=== PATIENT | female | born 1965 | race American Indian/Alaskan Native ===

== ENCOUNTER 2017-02-01 18:38 | Inpatient (IN) | payer MEDICAID ==
--- NOTE | 2017-02-01 19:03 | EDPD ---
HPI Stroke - General Time Seen by Provider: 02/01/17 18:59 Chief Complaint: Weakness/Neurological Deficit Historian: Patient - History of Present Illness Narrative History of Present Illness (Free Text): 02/01/17 18:55 51 year old female who denies past medical history presents to the emergency department with sharp headache followed by left sided numbness 30 minutes prior to arrival. Patient states she first had a headache before feeling numbness on the left side of the face, left arm, and left lower extremity. Currently patient states the headache has resolved but still reports left sided numbness. Patient reports her blood pressure is usually high but states she is not on medication. PMD: None Date:: 02/01/17 Time: 18:54 Onset:: Just prior to presenting rTPA Inclusion/Exclusion - Refusal of Treatment Patient Refused Treatment: No - Inclusion Criteria for Altepase Patient is 18 years or Older: Yes The Clinical Diagnosis of Ischemic Stroke That is Causing a Potentially Disabling Neurological Deficit: Yes Time of Onset is Well Established to be Less Than 270 Minute Before Treatment Would Begin: Yes Risk/Benefit Discussed With Patient/Family Member Present: No - Warning to TPA With Conditions Condition: Stroke Serevity Too Mild Past Medical History - Provider Review Nursing Documentation Reviewed: Yes - Infectious Disease Hx of Infectious Diseases: None - Reproductive Menopause: Yes - Cardiac Hx Hypertension: Yes - Integumentary Hx Dermatological Disorder: No - Psychiatric Hx Substance Use: No - Anesthesia Hx Anesthesia: No Family/Social History - Family/Social History Family History: Non-Contributory - Review Nursing documentation reviewed.: Yes Allergies/Home Meds Allergies/Adverse Reactions: Allergies latex Allergy (Verified 02/02/17 07:25) ITCHING shellfish derived Allergy (Verified 02/02/17 07:25) SHORTNESS OF BREATH Home Medications: Home Meds Medication Instructions Recorded Confirmed No Known Home Med 02/01/17 02/01/17 Review of Systems - Physician Review All systems were reviewed & negative as marked: Yes - Review of Systems Respiratory: absent: SOB Cardiovascular: absent: Chest Pain Neurological: Headache (resolved), Other (left sided numbness) ED Stroke Physical Exam Vital Signs Reviewed: Yes Vital Signs Temp Pulse Resp BP Pulse Ox 02/01/17 18:54 98 F 78 18 203/103 H 98 Temperature: Afebrile Blood Pressure: Hypertensive Pulse: Regular Respiratory Rate: Normal Appearance: Positive for: Well-Appearing, Non-Toxic, Comfortable Pain Distress: None Mental Status: Positive for: Alert and Oriented X 3 - Systems Exam Head: Present: Atraumatic, Normocephalic Pupils: Present: PERRL Extroacular Muscles: Present: EOMI Conjunctiva: Present: Normal Mouth: Present: Moist Mucous Membranes Neck: Present: Normal Range of Motion Respiratory/Chest: Present: Clear to Auscultation, Good Air Exchange. No: Respiratory Distress, Accessory Muscle Use Cardiovascular: Present: Regular Rate and Rhythm, Normal S1, S2. No: Murmurs Abdomen: Present: Normal Bowel Sounds. No: Tenderness, Distention, Peritoneal Signs Genitourinary/Pelvic Exam: Present: NI. No: C, E Back: Present: GCS, CN, SP Upper Extremity: Present: Normal Inspection. No: Cyanosis, Edema Lower Extremity: Present: Normal Inspection. No: Edema Neurologic: Present: GCS=15, CN II-XII Intact, Speech Normal, Motor Func Grossly Intact, Normal Cerebellar Funct, Norm Deep Tendon Reflexes, Memory Normal, Normal 2Pt Descrimination, Other (Subjective left sided decreased sensation). No: Pronator Drift, Facial Droop, Dysmetric Finger to Nose, Dysmetric Heel to Chin Skin: Present: Warm, Dry, Normal Color. No: Rashes Lymphatic: Present: OX3, NI, NC Psychiatric: Present: Alert, Oriented x 3, Normal Insight, Normal Concentration Medical Decision Making ED Course and Treatment: 02/01/17 18:[address] García who states no TPA EKG shows NSR at 89 BPM with LVH, nonspecific t wave abnormality EXAM: CT Head Without Intravenous Contrast IMPRESSION: No acute findings. Dictated and Authenticated by: Harvey Adrian MD Disc w Dr Suri who will admit - EKG Interpretation Interpreted by ED Physician: Yes Type: 12 lead EKG - Scribe Statement The provider has reviewed the documentation as recorded by the Swetha Silva Provider Scribe Attestation: All medical record entries made by the Scribe were at my direction and personally dictated by me. I have reviewed the chart and agree that the record accurately reflects my personal performance of the history, physical exam, medical decision making, and the department course for this patient. I have also personally directed, reviewed, and agree with the discharge instructions and disposition. NIHSS Scale ([place]) Time Performed: 18:55 - How Severe is the Stoke Baseline Level of Consciousness: 0=Alert LOC to Questions: 0=Both comments correct LOC to commands: 0=Obeys both correctly Best Gaze: 0=Normal Visual: 0=No visual loss Facial: 0=Normal Motor Arm - Left: 0=No drift Motor Arm - Right: 0=No drift Motor Leg - Left: 0=No drift Motor Leg - Right: 0=No drift Limb Ataxia: 0=Absent Sensory: 1=Mild to moderate loss Best Language: 0=No aphasia Dysarthia: 0=Normal articulation Extinction & Inattention (Neglect): 0=Normal, no object Score: 1 Risk Level: Minor Stroke Risk Disposition/Present on Arrival - Present on Arrival Any Indicators Present on Arrival: No History of DVT/PE: No History of Uncontrolled Diabetes: No Urinary Catheter: No History of Decub. Ulcer: No History Surgical Site Infection Following: None - Disposition Have Diagnosis and Disposition been Completed?: Yes Diagnosis: Left sided numbness Disposition: HOSPITALIZED Disposition Time: 20:09 Patient Problems: Current Active Problems Problem Status Diagnosed Left sided numbness Acute Condition: STABLE
[2017-02-01 19:08] LABS: ADD MANUAL DIFF? NO
[2017-02-01 19:13] LABS: BASO # 0.03 K/mm3 (0.0-2.0); BASO % 0.3 % (0.0-3.0); EOS # 0.1 (0.0-0.7); EOS % 1.3 % (1.5-5.0); GRAN # 4.05 (1.4-6.5); HEMATOCRIT 41.2 % (36.0-48.0); LYMPH # 3.9 (1.2-3.4); LYMPH % 44.8 % (22.0-35.0); MEAN CELL VOLUME 89.2 fL (80.0-105.0); MEAN CORPUSCULAR HEMOGLOBIN 30.3 pg (25.0-35.0); MEAN PLATELET VOLUME 10.2 fl (7.0-11.0); MONO # 0.6 (0.1-0.6); MONO % 6.6 % (1.0-6.0); PLATELET COUNT 313 10^3/uL (120.0-450.0); RED CELL DISTRIBUTION WIDTH 13.1 % (11.5-14.5); WHITE BLOOD COUNT 8.6 10^3/ul (4.5-11.0)
[2017-02-01 19:20] LABS: ALB/GLOB RATIO 1.1 (1.1-1.8); ALKALINE PHOSPHATASE 126 U/L (38-133); ALT/SGPT 130 U/L (7-56); AST/SGOT 147 U/L (15-39); BILIRUBIN,TOTAL 0.5 mg/dL (0.2-1.3); BLOOD UREA NITROGEN 7 mg/dL (7-21); CALCIUM 9.1 mg/dL (8.4-10.5); CARBON DIOXIDE 29 mmol/L (21-33); CHLORIDE 103 mmol/L (98-107); CHOLESTEROL 222 mg/dL (130-200); GFR AFRICAN-AMERICAN > 60; GLUCOSE,RANDOM 110 mg/dL (70-110); POTASSIUM 3.7 mmol/L (3.6-5.0); SODIUM 141 mmol/L (132-148); TOTAL PROTEIN 8.4 g/dL (5.8-8.3)
[2017-02-01 19:22] LABS: INR 0.99 (0.93-1.08); PARTIAL THROMBOPLASTIN TIME 25.4 Seconds (23.7-30.8)
[2017-02-01 19:31] LABS: TROPONIN I < 0.01 ng/mL
--- NOTE | 2017-02-01 21:28 | CP.PCM.HP ---
<Michael Vaughn - Last Filed: 02/01/17 21:33> History of Present Illness - History of Present Illness History of Present Illness: 51 F with PMHx of uncontrolled HTN non compliant with meds and herniated disc presents to [facility] by EMS with complaints of left sided numbness and weakness. 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 This discomfort lasted for approx 5 minutes, as the patient took a tylenol when arriving at home and relieved her of the symptom. Pt went to use the restroom and afterwards upon standing felt left sided weakness leading her to hit the left side of her body against the wall at which time she described feeling left sided numbness. The patient called out for her daughter as she ambulated towards a chair. The daughter, available at bedside, confirmed hearing her mom slur her words and a brief moment of confusion, however no facial droop. The daughter called EMS and was brought to [facility] ED and a code stroke was called. Neurology was made aware of the case and did not recommend tpa. Pt admitted to seeing floaters. Pt was seen and examined at bedside with family present. Pt denied fever, chills, chest pains, sob, palpitations, abdominal pains, n/v/d/c or urinary symptoms. PMHx: HTN, Herniated disc PSHx: 3 c-sections SHx: Denied tobacco abuse, admitted to drinking 40oz beer daily, denied illicit drug use Fam Hx: Mom: HTN, CAD Meds: Denied Allergies: Shellfish and latex Present on Admission - Present on Admission Any Indicators Present on Admission: No History of DVT/PE: No History of Uncontrolled Diabetes: No Urinary Catheter: No Decubitus Ulcer Present: No Review of Systems - Review of Systems Review of Systems: As per HPI otherwise negative Past Patient History - Infectious Disease Hx of Infectious Diseases: None - Past Social History Smoking Status: Unknown If Ever Smoked - CARDIAC Hx Hypertension: Yes - INTEGUMENTARY Hx Dermatological Problems: No - PSYCHIATRIC Hx Substance Use: No - ANESTHESIA Hx Anesthesia: No Meds Allergies/Adverse Reactions: Allergies Allergy/AdvReac Type Severity Reaction Status Date / Time No Known Allergies Allergy Verified 02/01/17 18:59 Physical Exam - Constitutional Appears: Well, No Acute Distress - Head Exam Head Exam: ATRAUMATIC, NORMAL INSPECTION, NORMOCEPHALIC - Eye Exam Eye Exam: EOMI, Normal appearance, PERRL Pupil Exam: NORMAL ACCOMODATION, PERRL - ENT Exam ENT Exam: Mucous Membranes Moist, Normal Exam - Neck Exam Neck exam: Positive for: Normal Inspection - Respiratory Exam Respiratory Exam: Clear to Auscultation Bilateral, NORMAL BREATHING PATTERN - Cardiovascular Exam Cardiovascular Exam: REGULAR RHYTHM, +S1, +S2. absent: JVD - GI/Abdominal Exam GI & Abdominal Exam: Normal Bowel Sounds, Soft. absent: Tenderness - Extremities Exam Extremities exam: Positive for: normal inspection, pedal edema (trace). Negative for: calf tenderness, tenderness - Back Exam Back exam: NORMAL INSPECTION - Neurological Exam Neurological exam: Alert, CN II-XII Intact, Normal Gait, Oriented x3, Reflexes Normal - Psychiatric Exam Psychiatric exam: Normal Affect, Normal Mood - Skin Skin Exam: Dry, Intact, Normal Color, Warm Results - Vital Signs Recent Vital Signs: Last Vital Signs Temp 98 F 02/01/17 18:54 Pulse 78 02/01/17 18:54 Resp 18 02/01/17 18:54 BP 203/103 H 02/01/17 18:54 Pulse Ox 98 02/01/17 18:54 - Labs Result Diagrams: 02/01/17 19:00 02/01/17 19:00 Labs: Laboratory Results - last 24 hr 02/01/17 19:00 WBC 8.6 RBC 4.62 Hgb 14.0 Hct 41.2 MCV 89.2 MCH 30.3 MCHC 34.0 RDW 13.1 Plt Count 313 MPV 10.2 Gran % 47.0 L Lymph % (Auto) 44.8 H [place] % (Auto) 6.6 H Eos % (Auto) 1.3 L Baso % (Auto) 0.3 Gran # 4.05 Lymph # 3.9 H [place] # 0.6 Eos # 0.1 Baso # 0.03 PT 10.7 INR 0.99 APTT 25.4 Sodium 141 Potassium 3.7 Chloride 103 Carbon Dioxide 29 Anion Gap 13 BUN 7 Creatinine 0.6 Est GFR ( Amer) > 60 Est GFR (Non-Af Amer) > 60 Random Glucose 110 Calcium 9.1 Total Bilirubin 0.5 AST 147 H ALT 130 H Alkaline Phosphatase 126 Troponin I < 0.01 Total Protein 8.4 H Albumin 4.4 Globulin 4.0 Albumin/Globulin Ratio 1.1 Triglycerides 144 Cholesterol 222 H LDL Cholesterol Direct 132 H HDL Cholesterol 57 Assessment & Plan - Assessment and Plan (Free Text) Assessment: 51 F with PMHx of uncontrolled HTN non compliant with meds and herniated disc presents to [facility] by EMS with complaints of left sided numbness and weakness. Currently without symptoms. Admitted to tele obs. 1. Left sided Numbness and Weakness - possible TIA, currently resolved - CTH negative - Neurology, Dr. García Consulted, no indications for tPA at this time. - Asa - HOB >30 - Fall precautions - Neurochecks q4 2. Uncontrolled HTN - 203/103 - Norvasc 10 daily ,HCTZ 25 daily, Hydralazine 10mg IV - Reassess after hydralazine 3. Etoh abuse - counselled and educated pt on the harms of daily drinking - pt agreed and conferred understanding 4. GI DVT ppx seen reviewed and discussed with attending <Daisha SEGURA,Brent - Last Filed: 02/02/17 05:46> Results - Vital Signs Recent Vital Signs: Last Vital Signs Temp 98.1 F 02/02/17 00:01 Pulse 80 02/02/17 01:58 Resp 20 02/02/17 00:01 BP 164/78 H 02/02/17 01:58 Pulse Ox 96 02/02/17 00:01 - Labs Result Diagrams: 02/01/17 19:00 02/01/17 19:00 Labs: Laboratory Results - last 24 hr 02/01/17 22:20 Urine Color Yellow Urine Appearance Clear Urine pH 7.5 Ur Specific [place] 1.015 Urine Protein 30 H Urine Glucose (UA) Negative Urine Ketones Negative Urine Blood Negative Urine Nitrate Negative Urine Bilirubin Negative Urine Urobilinogen 0.2 Ur Leukocyte Esterase Negative Urine RBC 0 - 2 Urine WBC 0 - 2 Urine Opiates Screen Negative Urine Methadone Screen Negative Ur Barbiturates Screen Negative Ur Phencyclidine Scrn Negative Ur Amphetamines Screen Negative U Benzodiazepines Scrn Negative U Oth Cocaine Metabols Negative U Cannabinoids Screen Negative Attending/Attestation - Attestation I have personally seen and examined this patient.: Yes I have fully participated in the care of the patient.: Yes I have reviewed all pertinent clinical information: Yes Notes (Text): 02/02/17 05:40 -I agree with the above H&P completed by the resident physician with the following additions and/or changes: -The patient is a 51 year old AAF with a history of HTN and chronic alcohol abuse who is being admitted for TIA due to hypertensive emergency. She admits to medication non-compliance. A code stroke was initially called and Dr. Brendan Garcaí (neurology) determined the patient NOT to be a candidate for t-PA. CT- head was negative for acute disease. She will be admitted to tele and started on HCTZ 25mg daily and Norvasc 10mg daily. Additionally, we will use Clonidine PRN as needed to control her pressures. Also, she will be started in daily ASA and her neuro exam will be monitored Q4hrs. As apart of the stroke work-up, the following labs and studies have been ordered: HgA1c, Lipids, TSH, drug toxicology, 2D-echo and bilateral carotid ultrasound. Also, a formal neurology consult has been placed.
[2017-02-01 22:33] LABS: PH,URINE 7.5 (4.7-8.0); URINE BILIRUBIN NEGATIVE (NEGATIVE); URINE BLOOD NEGATIVE (NEGATIVE); URINE GLUCOSE (UA) NEGATIVE (NEGATIVE); URINE KETONE NEGATIVE (NEGATIVE); URINE LEUKOCYTE ESTERASE NEGATIVE Leu/uL (NEGATIVE); URINE PROTEIN 30 mg/dL (<30 mg/dL); URINE UROBILINOGEN 0.2 E.U./dL (<1 E.U./dL)
[2017-02-01 22:46] LABS: URINE APPEARANCE CLEAR (CLEAR); URINE COLOR YELLOW (YELLOW)
[2017-02-01 22:53] LABS: URINE RBC 0 - 2 /hpf (0-2); URINE WBC 0 - 2 /hpf (0-6)
[2017-02-01] MEDS ORDERED: Labetalol 5 mg/ml Inj 20ML IV STA ×2 (23:06→23:35)
[2017-02-02 00:32] VITALS: RESP 20
[2017-02-02 05:52] VITALS: TEMP 97.8; O2SAT 97
[2017-02-02 07:20] LABS: CHOLESTEROL 205 mg/dL (130-200)
[2017-02-02] MEDS ORDERED: Pantoprazole 40 mg EC Tab PO SCH (07:30)
--- NOTE | 2017-02-02 09:38 | CON ---
DATE: 02/02/2017 AGE: A 51-year-old woman. CHIEF COMPLAINT: Transient left side numbness. HISTORY OF PRESENT ILLNESS: This is a 51-year-old woman with a history of uncontrol led hypertension -- noncompliant with medications, and a history of herniated disk, low back pain, an d has not seen a primary care doctor in about 5 years. 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 When she went to use the restroom, getting up from a sitting to a standing position, she felt her left side weak and hit herse lf against the wall. At that time she started feeling the left side numbness. She came [facility]. She had elevated systolic and diastolic blood pressures, 203/103, which eventually was being controlled to now where it is stable of 144/68. She was not on aspirin currentl y. Currently, no paresthesias, no weakness in the extremities. Her neuro exam is currently nonfocal . She walked around without any difficulty. No change in sense of vision, taste, or smell. No slur ring of speech. No headaches at this time. REVIEW OF SYSTEMS: A 14-point review of systems is negative except for the HPI. PAST MEDICAL HISTORY: History of hypertension, chronic back pain, history of herniated disk. PAST SURGICAL HISTORY: Three C-sections. SOCIAL HISTORY: Denies tobacco use, but admits to drinking 40 ounce beers daily. Denies any illicit drug use. FAMILY HISTORY: Mom has hypertension and coronary artery disease. CURRENT MEDICATIONS: Reviewed and nurse's reconciliation sheet. ALLERGIES: ALLERGIC TO SHELLFISH AND LATEX. PHYSICAL EXAMINATION: VITAL SIGNS: Temperature 97.8, pulse rate 80, blood pressure 144/68, respiratory rate of 20, oxygen saturation 97%. FAMILY HISTORY: Noncontributory. GENERAL EXAMINATION: The patient is sitting up in bed in no acute distress. HENT: Atraumatic, normocephalic. PERRLA, extraocular muscles intact. NECK: Supple, no JVD, no adenopathy noted. LUNGS: Clear to auscultation. No adventitious sounds. HEART: S1and S2, normal rate and rhythm. No murmurs, rubs, or gallops. ABDOMEN: Soft, nontender, nondistended. Bowel sounds are present. EXTREMITIES: No clubbing, no cyanosis. Peripheral pulses 2+ felt bilaterally. NEUROLOGIC EXAMINATION: The patient is alert, oriented to person, place, month, and year. Speech is fluent without any errors. Cranial nerves II-XII are intact. MOTOR EXAMINATION: Strength is 5/5 in both upper and lower extremities, no pronator drift seen. SENSORY EXAMINATION: Light touch, pinprick, proprioception, vibration intact. DTRs are 2+ throughou t. COORDINATION: [id number] intact. There is no tremors elicited. GAIT: Normal. Romberg negative. Sodium 141, potassium 3.7, chloride of 103, carbon dioxide 29, BUN of 7, creatinine 0.6, random gluco se of 110. A1c 6.4, triglycerides 204, cholesterol is 205. LDL is 123, HDL is 47. ASSESSMENT AND PLAN: This is a 51-year-old woman with a history of uncontrolled hyp ertension -- noncompliant with medications, history of low back pain with herniated disks, who presen juanjose with transient left side numbness and right facial pressure which is currently resolved. She was found to have elevated systolic and diastolic blood pressure of more than 200, and diastolic more th an 100. Currently, it is under control. Her transient symptoms are likely secondary to her transien t ischemic events secondary to hypertensive urgency. At this time, recommend: 1. Aspirin 81 mg plus Lipitor 40 mg p.o. daily for stroke prevention. 2. Lipitor 40 mg p.o. daily for dyslipidemia. 3. Advise low-fat, low-cholesterol diet. 4. Alcohol cessation so it can prevent her from pressures going up. 5. Establish a primary care doctor in the community. 6. Exercise, and a heart-healthy diet. She is clinically stable. From my standpoint she can be discharged home and follow up with her prima care doctor. Thank you for this consult. Pierre García MD cc: [id number] TT: 02/02/2017 09:38:06 Confirmation # [id number] Dictation # [id number]
[2017-02-02 10:24] VITALS: BP 151/91; PULSE 91
--- NOTE | 2017-02-02 10:27 | RAD ---
HISTORY: code cva COMPARISON: No prior. FINDINGS: LUNGS: No active pulmonary disease. PLEURA: No significant pleural effusion identified, no pneumothorax apparent. CARDIOVASCULAR: Heart appears mildly enlarged. OSSEOUS STRUCTURES: No significant abnormalities. VISUALIZED UPPER ABDOMEN: Normal. OTHER FINDINGS: None. IMPRESSION: No acute cardiopulmonary disease. Mild cardiomegaly.
--- NOTE | 2017-02-02 11:28 | CARD ---
APPROVED REPORT EKG Measurement Heart [id number] <Conclusion> Normal sinus rhythm Possible Left atrial enlargement Left ventricular hypertrophy Leftward axis STTW changes c/w ischemia
--- NOTE | 2017-02-02 12:47 | US ---
PROCEDURE: Bilateral carotid artery duplex ultrasound HISTORY: Carotid stenosis TIA PHYSICIAN(S): Zaire Burns MD. TECHNIQUE: Duplex sonography and color-flow Doppler were used to evaluate the carotid bifurcations and limited segments of the vertebral arteries bilaterally. FINDINGS: The exam is somewhat limited by body habitus and tortuous vessels, greater on the left than the right There is mild smooth hypoechoic plaque noted at the carotid bifurcations bilaterally. The peak systolic velocity in the proximal right internal carotid artery is 61 cm/sec. This corresponds to a 20 to 39% proximal right ICA stenosis. Normal systolic velocities are noted in the proximal right external carotid artery. There is antegrade flow in the right vertebral artery. The peak systolic velocity in the proximal left internal carotid artery is 58 cm/sec. This corresponds to a 20 to 39% proximal left ICA stenosis. Normal systolic velocities are noted in the proximal left external carotid artery. There is antegrade flow in the left vertebral artery. IMPRESSION: 1. Bilateral 20-39% proximal ICA stenoses. 2. Antegrade flow in both vertebral arteries.
--- NOTE | 2017-02-02 12:59 | CT ---
PROCEDURE: CT scan brain dated 02/01/2017 HISTORY: left side numbness COMPARISON: No prior study available comparison TECHNIQUE: Axial computed tomography images were obtained through the head/brain without intravenous contrast. Radiation dose: Total exam DLP = 940.91 mGy-cm. This CT exam was performed using one or more of the following dose reduction techniques: Automated exposure control, adjustment of the mA and/or kV according to patient size, and/or use of iterative reconstruction technique. FINDINGS: HEMORRHAGE: No acute parenchymal, subarachnoid or extra-axial hemorrhage. BRAIN: Minor chronic periventricular white matter ischemic changes of with a few scattered chronic appearing bilateral basal nuclei lacunar type infarcts. Note the possibility of an underlying acute infarct cannot be completely excluded. There is any concern, recommend followup on MRI of the brain the urgency of which is should be based on clinical correlation and whether the patient is currently eligible for tPA therapy VENTRICLES: Mild age-appropriate volume loss with prominent ventricles and sulci. No obstructive hydrocephalus. CALVARIUM: No acute calvarial fractures. PARANASAL SINUSES: Minimal mucosal thickening noted within the right maxillary antrum. MASTOID AIR CELLS: Unremarkable as visualized. No inflammatory changes. OTHER FINDINGS: None. IMPRESSION: No acute intracranial hemorrhage. Mild chronic white matter ischemic changes with a few scattered chronic bilateral basal nuclei lacunar type infarcts. Note that the possibility of an acute infarct cannot be excluded. Followup MRI with diffusion imaging recommended as detailed above.
--- NOTE | 2017-02-02 13:48 | CP.PCM.DIS ---
<Martínez Freeman - Last Filed: 02/02/17 16:48> Provider - Provider Date of Admission: 02/01/17 20:09 Attending physician: Puma Kruger MD Primary care physician: NO PRIMARY CARE PROVIDER Consults: Dr. Pierre García Time Spent in preparation of Discharge (in minutes): 35 Hospital Course - Lab Results Lab Results: Most Recent Lab Values WBC 8.6 10^3/ul (4.5-11.0) 02/01/17 19:00 RBC 4.62 10^6/uL (3.5-6.1) 02/01/17 19:00 Hgb 14.0 gm/dL (12.0-16.0) 02/01/17 19:00 Hct 41.2 % (36.0-48.0) 02/01/17 19:00 MCV 89.2 fL (80.0-105.0) 02/01/17 19:00 MCH 30.3 pg (25.0-35.0) 02/01/17 19:00 MCHC 34.0 g/dl (31.0-37.0) 02/01/17 19:00 RDW 13.1 % (11.5-14.5) 02/01/17 19:00 Plt Count 313 10^3/uL (120.0-450.0) 02/01/17 19:00 MPV 10.2 fl (7.0-11.0) 02/01/17 19:00 Gran % 47.0 % (50.0-68.0) L 02/01/17 19:00 Lymph % (Auto) 44.8 % (22.0-35.0) H 02/01/17 19:00 Foster % (Auto) 6.6 % (1.0-6.0) H 02/01/17 19:00 Eos % (Auto) 1.3 % (1.5-5.0) L 02/01/17 19:00 Baso % (Auto) 0.3 % (0.0-3.0) 02/01/17 19:00 Gran # 4.05 (1.4-6.5) 02/01/17 19:00 Lymph # 3.9 (1.2-3.4) H 02/01/17 19:00 Foster # 0.6 (0.1-0.6) 02/01/17 19:00 Eos # 0.1 (0.0-0.7) 02/01/17 19:00 Baso # 0.03 K/mm3 (0.0-2.0) 02/01/17 19:00 PT 10.7 Seconds (9.9-11.8) 02/01/17 19:00 INR 0.99 (0.93-1.08) 02/01/17 19:00 APTT 25.4 Seconds (23.7-30.8) 02/01/17 19:00 Sodium 141 mmol/L (132-148) 02/01/17 19:00 Potassium 3.7 mmol/L (3.6-5.0) 02/01/17 19:00 Chloride 103 mmol/L (98-107) 02/01/17 19:00 Carbon Dioxide 29 mmol/L (21-33) 02/01/17 19:00 Anion Gap 13 (10-20) 02/01/17 19:00 BUN 7 mg/dL (7-21) 02/01/17 19:00 Creatinine 0.6 mg/dL (0.5-1.4) 02/01/17 19:00 Est GFR ( Amer) > 60 02/01/17 19:00 Est GFR (Non-Af Amer) > 60 02/01/17 19:00 POC Glucose (mg/dL) 113 mg/dL (65-110) H 02/02/17 07:17 Random Glucose 110 mg/dL (70-110) 02/01/17 19:00 Hemoglobin A1c 6.4 % (4.2-6.5) 02/01/17 19:00 Calcium 9.1 mg/dL (8.4-10.5) 02/01/17 19:00 Total Bilirubin 0.5 mg/dL (0.2-1.3) 02/01/17 19:00 AST 147 U/L (15-39) H 02/01/17 19:00 ALT 130 U/L (7-56) H 02/01/17 19:00 Alkaline Phosphatase 126 U/L (38-133) 02/01/17 19:00 Troponin I < 0.01 ng/mL 02/01/17 19:00 Total Protein 8.4 g/dL (5.8-8.3) H 02/01/17 19:00 Albumin 4.4 g/dL (3.0-4.8) 02/01/17 19:00 Globulin 4.0 gm/dL 02/01/17 19:00 Albumin/Globulin Ratio 1.1 (1.1-1.8) 02/01/17 19:00 Triglycerides 204 mg/dL (35-160) H 02/02/17 06:30 Cholesterol 205 mg/dL (130-200) H 02/02/17 06:30 LDL Cholesterol Direct 123 mg/dL (0-129) 02/02/17 06:30 HDL Cholesterol 47 mg/dL (29-60) 02/02/17 06:30 TSH 3rd Generation 4.56 mIU/mL (0.46-4.68) 02/01/17 19:00 Urine Color Yellow (YELLOW) 02/01/17 22:20 Urine Appearance Clear (CLEAR) 02/01/17 22:20 Urine pH 7.5 (4.7-8.0) 02/01/17 22:20 Ur Specific [place] 1.015 (1.005-1.035) 02/01/17 22:20 Urine Protein 30 mg/dL (<30 mg/dL) H 02/01/17 22:20 Urine Glucose (UA) Negative mg/dL (NEGATIVE) 02/01/17 22:20 Urine Ketones Negative mg/dL (NEGATIVE) 02/01/17 22:20 Urine Blood Negative (NEGATIVE) 02/01/17 22:20 Urine Nitrate Negative (NEGATIVE) 02/01/17 22:20 Urine Bilirubin Negative (NEGATIVE) 02/01/17 22:20 Urine Urobilinogen 0.2 E.U./dL (<1 E.U./dL) 02/01/17 22:20 Ur Leukocyte Esterase Negative Dipesh/uL (NEGATIVE) 02/01/17 22:20 Urine RBC 0 - 2 /hpf (0-2) 02/01/17 22:20 Urine WBC 0 - 2 /hpf (0-6) 02/01/17 22:20 Urine Opiates Screen Negative (NEGATIVE) 02/01/17 22:20 Urine Methadone Screen Negative (NEGATIVE) 02/01/17 22:20 Ur Barbiturates Screen Negative (NEGATIVE) 02/01/17 22:20 Ur Phencyclidine Scrn Negative (NEGATIVE) 02/01/17 22:20 Ur Amphetamines Screen Negative (NEGATIVE) 02/01/17 22:20 U Benzodiazepines Scrn Negative (NEGATIVE) 02/01/17 22:20 U Oth Cocaine Metabols Negative (NEGATIVE) 02/01/17 22:20 U Cannabinoids Screen Negative (NEGATIVE) 02/01/17 22:20 Blood Type B POSITIVE 02/01/17 17:00 Blood Type Confirm B POSITIVE 02/01/17 17:30 Antibody Screen Negative 02/01/17 17:00 BBK History Checked No verified bt 02/01/17 17:00 - Hospital Course Hospital Course: HPI: 51 F with PMHx of uncontrolled HTN non compliant with meds and herniated disc presents to [facility] by EMS with complaints of left sided numbness and weakness. 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 This discomfort lasted for approx 5 minutes, as the patient took a tylenol when arriving at home and relieved her of the symptom. Pt went to use the restroom and afterwards upon standing felt left sided weakness leading her to hit the left side of her body against the wall at which time she described feeling left sided numbness. The patient called out for her daughter as she ambulated towards a chair. The daughter, available at bedside, confirmed hearing her mom slur her words and a brief moment of confusion, however no facial droop. The daughter called EMS and was brought to [facility] ED and a code stroke was called. Neurology was made aware of the case and did not recommend tpa. Pt admitted to seeing floaters. Pt was seen and examined at bedside with family present. Pt denied fever, chills, chest pains, sob, palpitations, abdominal pains, n/v/d/c or urinary symptoms. Patient is a 51 y/o F who presented with complaint of left sided numbness and weakness. Head CT performed showed no acute intracranial hemorrhage, with mild chronic white matter ischemic changes and few scattered chronic bilateral basal nuclei lacunar infarcts. A chest x-ray was performed showing mild cardiomegally. An EKG was performed normal sinus rhythm, left atrial enlargement , LVH and left axis deviation. Neurology was consulted and she was determined not a candidate for TPA. Her blood pressure was elevated on admission at 203/ 103. she was started on HCTZ, Labetalol, Catapres, and Norvasc and her BP improved. Her symptoms resolved. A carotid doppler was performed showing bilateral 20-39% proximal ICA stenosis. Her cholesterol and LFT's were elevated and she admitted to drinking beer daily. Per neurology she was stable for discharge. She was determined medically stable for discharge with prescriptions for Aspirin 81mg, Hydrodiuril 25mg, Lipitor 10 mg, and Norvasc 10 mg. She was advised to: take medications as prescribed; follow up with the [facility] at [facility] within a week; follow up with your neurologist, Dr. García within a week; refrain from alcohol use as this will have adverse effects with medication; adhere to a low fat diet and get regular daily exercise at least 30 minutes a day; and if your symptoms worsen or new symptoms arise, please return to the emergency department. She verbalized understanding as well as family present and was discharged home. This is a brief summary of the patient's stay at this facility. For more detail , see patient's full chart. - Date & Time of H&P Date of H&P: 02/01/17 Time of H&P: 21:15 Discharge Exam - Head Exam Head Exam: ATRAUMATIC, NORMAL INSPECTION, NORMOCEPHALIC - Eye Exam Eye Exam: EOMI, Normal appearance, PERRL Pupil Exam: NORMAL ACCOMODATION, PERRL - ENT Exam ENT Exam: Mucous Membranes Moist, Normal Oropharynx - Respiratory Exam Respiratory Exam: Clear to PA & Lateral, NORMAL BREATHING PATTERN. absent: Rales, Rhonchi, Wheezes - Cardiovascular Exam Cardiovascular Exam: REGULAR RHYTHM, +S1, +S2. absent: Gallop, Rubs, Systolic Murmur - GI/Abdominal Exam GI & Abdominal Exam: Normal Bowel Sounds, Soft. absent: Tenderness - Extremities Exam Extremities exam: normal capillary refill, normal inspection, pedal pulses present - Neurological Exam Neurological exam: Alert, CN II-XII Intact, Oriented x3 - Psychiatric Exam Psychiatric exam: Normal Affect, Normal Mood - Skin Skin Exam: Dry, Intact, Warm Discharge Plan - Discharge Medications Prescriptions: Aspirin [Aspirin Chewable] 81 mg PO DAILY #10 chew hydroCHLOROthiazide [Hydrodiuril] 25 mg PO DAILY #10 tab Atorvastatin [Lipitor] 10 mg PO DIN #10 tab amLODIPine [Norvasc] 10 mg PO DAILY #10 tab - Follow Up Plan Condition: STABLE Disposition: HOME/ ROUTINE Instructions: Low Fat Diet (DC), At-Risk Alcohol Use (DC), Hypertension (DC), Hypertension (GEN) Additional Instructions: You are medically stable for discharge with prescriptions for Aspirin 81mg, Hydrodiuril 25mg, Lipitor 10 mg, and Norvasc 10 mg. Please take medications as prescribed. Please follow up with the [facility] at [facility] within a week. Please follow up with your neurologist, Dr. García within a week. Please refrain from alcohol use as this will have adverse effects with medication. Adhere to a low fat diet and get regular daily exercise at least 30 minutes a day. If your symptoms worsen or new symptoms arise, please return to the emergency department. Referrals: PCP,NO [Primary Care Provider] - Pierre García MD [Staff Provider] - [facility] at [facility] [Outside] <Puma Kruger - Last Filed: 02/02/17 17:28> Provider - Provider Date of Admission: 02/01/17 20:09 Attending physician: Puma Kruger MD Primary care physician: ALEJA PRIMARY CARE PROVIDER Hospital Course - Lab Results Lab Results: Most Recent Lab Values WBC 8.6 10^3/ul (4.5-11.0) 02/01/17 19:00 RBC 4.62 10^6/uL (3.5-6.1) 02/01/17 19:00 Hgb 14.0 gm/dL (12.0-16.0) 02/01/17 19:00 Hct 41.2 % (36.0-48.0) 02/01/17 19:00 MCV 89.2 fL (80.0-105.0) 02/01/17 19:00 MCH 30.3 pg (25.0-35.0) 02/01/17 19:00 MCHC 34.0 g/dl (31.0-37.0) 02/01/17 19:00 RDW 13.1 % (11.5-14.5) 02/01/17 19:00 Plt Count 313 10^3/uL (120.0-450.0) 02/01/17 19:00 MPV 10.2 fl (7.0-11.0) 02/01/17 19:00 Gran % 47.0 % (50.0-68.0) L 02/01/17 19:00 Lymph % (Auto) 44.8 % (22.0-35.0) H 02/01/17 19:00 Foster % (Auto) 6.6 % (1.0-6.0) H 02/01/17 19:00 Eos % (Auto) 1.3 % (1.5-5.0) L 02/01/17 19:00 Baso % (Auto) 0.3 % (0.0-3.0) 02/01/17 19:00 Gran # 4.05 (1.4-6.5) 02/01/17 19:00 Lymph # 3.9 (1.2-3.4) H 02/01/17 19:00 Foster # 0.6 (0.1-0.6) 02/01/17 19:00 Eos # 0.1 (0.0-0.7) 02/01/17 19:00 Baso # 0.03 K/mm3 (0.0-2.0) 02/01/17 19:00 PT 10.7 Seconds (9.9-11.8) 02/01/17 19:00 INR 0.99 (0.93-1.08) 02/01/17 19:00 APTT 25.4 Seconds (23.7-30.8) 02/01/17 19:00 Sodium 141 mmol/L (132-148) 02/01/17 19:00 Potassium 3.7 mmol/L (3.6-5.0) 02/01/17 19:00 Chloride 103 mmol/L (98-107) 02/01/17 19:00 Carbon Dioxide 29 mmol/L (21-33) 02/01/17 19:00 Anion Gap 13 (10-20) 02/01/17 19:00 BUN 7 mg/dL (7-21) 02/01/17 19:00 Creatinine 0.6 mg/dL (0.5-1.4) 02/01/17 19:00 Est GFR ( Amer) > 60 02/01/17 19:00 Est GFR (Non-Af Amer) > 60 04/14/17 19:00 POC Glucose (mg/dL) 113 mg/dL (65-110) H 02/02/17 07:17 Random Glucose 110 mg/dL (70-110) 02/01/17 19:00 Hemoglobin A1c 6.4 % (4.2-6.5) 02/01/17 19:00 Calcium 9.1 mg/dL (8.4-10.5) 02/01/17 19:00 Total Bilirubin 0.5 mg/dL (0.2-1.3) 02/01/17 19:00 AST 147 U/L (15-39) H 02/01/17 19:00 ALT 130 U/L (7-56) H 02/01/17 19:00 Alkaline Phosphatase 126 U/L (38-133) 02/01/17 19:00 Troponin I < 0.01 ng/mL 02/01/17 19:00 Total Protein 8.4 g/dL (5.8-8.3) H 02/01/17 19:00 Albumin 4.4 g/dL (3.0-4.8) 02/01/17 19:00 Globulin 4.0 gm/dL 02/01/17 19:00 Albumin/Globulin Ratio 1.1 (1.1-1.8) 02/01/17 19:00 Triglycerides 204 mg/dL (35-160) H 02/02/17 06:30 Cholesterol 205 mg/dL (130-200) H 02/02/17 06:30 LDL Cholesterol Direct 123 mg/dL (0-129) 02/02/17 06:30 HDL Cholesterol 47 mg/dL (29-60) 02/02/17 06:30 TSH 3rd Generation 4.56 mIU/mL (0.46-4.68) 02/01/17 19:00 Urine Color Yellow (YELLOW) 02/01/17 22:20 Urine Appearance Clear (CLEAR) 02/01/17 22:20 Urine pH 7.5 (4.7-8.0) 02/01/17 22:20 Ur Specific [place] 1.015 (1.005-1.035) 02/01/17 22:20 Urine Protein 30 mg/dL (<30 mg/dL) H 02/01/17 22:20 Urine Glucose (UA) Negative mg/dL (NEGATIVE) 02/01/17 22:20 Urine Ketones Negative mg/dL (NEGATIVE) 02/01/17 22:20 Urine Blood Negative (NEGATIVE) 02/01/17 22:20 Urine Nitrate Negative (NEGATIVE) 02/01/17 22:20 Urine Bilirubin Negative (NEGATIVE) 02/01/17 22:20 Urine Urobilinogen 0.2 E.U./dL (<1 E.U./dL) 02/01/17 22:20 Ur Leukocyte Esterase Negative Dipesh/uL (NEGATIVE) 02/01/17 22:20 Urine RBC 0 - 2 /hpf (0-2) 02/01/17 22:20 Urine WBC 0 - 2 /hpf (0-6) 02/01/17 22:20 Urine Opiates Screen Negative (NEGATIVE) 02/01/17 22:20 Urine Methadone Screen Negative (NEGATIVE) 02/01/17 22:20 Ur Barbiturates Screen Negative (NEGATIVE) 02/01/17 22:20 Ur Phencyclidine Scrn Negative (NEGATIVE) 02/01/17 22:20 Ur Amphetamines Screen Negative (NEGATIVE) 02/01/17 22:20 U Benzodiazepines Scrn Negative (NEGATIVE) 02/01/17 22:20 U Oth Cocaine Metabols Negative (NEGATIVE) 02/01/17 22:20 U Cannabinoids Screen Negative (NEGATIVE) 02/01/17 22:20 Blood Type B POSITIVE 02/01/17 17:00 Blood Type Confirm B POSITIVE 02/01/17 17:30 Antibody Screen Negative 02/01/17 17:00 BBK History Checked No verified bt 02/01/17 17:00 Attending/Attestation - Attestation I have personally seen and examined this patient.: Yes I have fully participated in the care of the patient.: Yes I have reviewed all pertinent clinical information, including history, physical exam and plan: Yes Notes (Text): 02/02/17 17:21 51 year old female with past medical history of hypertension (noncompliant with medications) and etoh abuse who presented with transient left sided weakness / numbness which resolved. CT head was negative for acute intracranial hemorrhage ; showed mild chronic white matter ischemic changes and few scattered chronic bilateral basal nuclei lacunar infarcts. In the ER she was found to have very hypertensive (205/117). This improved with hydralazine and she is now on HCTZ and norvasc. She was seen by neurology who cleared her for discharge on aspirin and low dose statin. Her LFTs were elevated, likely secondary to chronic ETOH abuse. She is discharged home to follow up at [facility] this coming week. Recommended to abstain from ETOH and repeat LFTs in clinic. I did explain to her ETOH and statins can raise liver functions. If LFTs increasing in the clinic can discontinue statin. Counselled on low salt and low fat, cholesterol diet. Counselled on alcohol abstinence. Counselled on medication and outpatient follow up compliance. Puma Kruger MD Hospitalist.
--- NOTE | 2017-02-03 09:20 | CARD ---
APPROVED REPORT EXAM: Two-dimensional and M-mode echocardiogram with Doppler and color Doppler. Other Information Quality : AverageRhythm : INDICATION Stroke 2D DIMENSIONS Left Atrium (2D)3.3 (1.6-4.0cm)IVSd1.6 (0.7-1.1cm) LVDd4.3 (3.9-5.9cm)PWd1.5 (0.7-1.1cm) LVDs3.0 (2.5-4.0cm)FS (%) 29.7 % LVEF (%)57.2 (>50%) M-Mode DIMENSIONS Left Atrium (MM)3.00 (2.5-4.0cm)Aortic Root2.70 (2.2-3.7cm) Aortic Cusp Exc.1.70 (1.5-2.0cm) Aortic Valve AoV Peak Zxmnyqad656.0cm/sAoV VTI28.8cmAO Peak GR.11mmHg LVOT Peak Zurqojyx780.0cm/sLVOT VTI22.20cmAO Mean GR.6mmHg Mitral Valve MV E Tlenutum46.1cm/sMV A Obnkdnqa58.3cm/sE/A ratio0.7 TDI Lateral E' Peak V5.77cm/sMedial E' Peak V4.91cm/sE/Lateral E'11.8 E/Medial E'13.9 Tricuspid Valve TR Peak Melflpji819qz/sTR Peak Gr.32mmHg LEFT VENTRICLE The left ventricle is normal size. There is normal left ventricular wall thickness. The left ventricular function is normal. The left ventricular ejection fraction is within the normal range. There is normal LV segmental wall motion. RIGHT VENTRICLE The right ventricle is normal size. ATRIA The left atrium size is normal. The right atrium size is normal. The interatrial septum is intact with no evidence for an atrial septal defect. AORTIC VALVE The aortic valve is normal in structure. MITRAL VALVE The mitral valve is normal in structure. Mitral regurgitation is trace. TRICUSPID VALVE The tricuspid valve is normal in structure. There is trace tricuspid regurgitation. PULMONIC VALVE The pulmonic valve is not well visualized. GREAT VESSELS The aortic root is normal in size. PERICARDIAL EFFUSION There is no pericardial effusion. <Conclusion> The left ventricle is normal size. There is normal left ventricular wall thickness. The left ventricular function is normal.
== END 2017-02-02 14:26 | disposition home or self-care (01) | DRG 134 ==
LOC: ED 18:38 → MERGE 20:09 → ERH 20:09 → 2RSO 23:16 → 2RNO 02-02 01:03
PROVIDERS: ADMIT Hospitalist; ATTEND Internal Medicine
DX: I16.0 Hypertensive urgency (principal); I65.23 Occlusion and stenosis of bilateral carotid arteries; F10.10 Alcohol abuse, uncomplicated; Y90.9 Presence of alcohol in blood, level not specified; Z91.14 Patient's other noncompliance with medication regimen; M51.9 Unspecified thoracic, thoracolumbar and lumbosacral intervertebral disc disorder

== ENCOUNTER 2017-02-12 13:40 | Emergency (ER) | payer MEDICAID, OTHER ==
[2017-02-12 13:50] VITALS: RESP 16; TEMP 98.2
--- NOTE | 2017-02-12 14:12 | ED PDOC ---
Arrival/HPI <Tapan Cordero - Last Filed: 02/12/17 14:33> - General Historian: Patient - History of Present Illness Time/Duration: > month Quality: Other (chronic) Context: Home <Ed Osorio - Last Filed: 02/12/17 21:08> - General Chief Complaint: Med Refill Time Seen by Provider: 02/12/17 14:11 - History of Present Illness Narrative History of Present Illness (Text): 02/12/17 14:20 This 51 yo female with pmh TIA, presents to this ED c/o persisting left 5th finger numbness x 11 days. She also requesting medication refill. Patient admits numbness is similar to the symptoms she had during last hospital admission. Patient denies facial numbness, dizziness, facial drooping, abnormal gait, diplopia, dysarthria, weakness, tingling, cp, sob, abdominal pain , or abnormal gait. (Ed Osorio) Past Medical History - Provider Review Nursing Documentation Reviewed: Yes - Infectious Disease Hx of Infectious Diseases: None - Reproductive Menopause: Yes - Cardiac Hx Hypertension: Yes - Pulmonary Hx Respiratory Disorders: No - Neurological Hx Neurological Disorder: No - HEENT Hx HEENT Disorder: Yes (wears glasses) - Renal Hx Renal Disorder: No - Endocrine/Metabolic Hx Endocrine Disorders: No - Hematological/Oncological Hx Blood Disorders: No - Integumentary Hx Dermatological Disorder: No - Musculoskeletal/Rheumatological Hx Musculoskeletal Disorders: No Hx Falls: No Hx Unsteady Gait: No - Gastrointestinal Hx Gastrointestinal Disorders: No - Genitourinary/Gynecological Hx Genitourinary Disorders: No - Psychiatric Hx Psychophysiologic Disorder: No Hx Substance Use: No - Anesthesia Hx Anesthesia: No <Ed Osorio P - Last Filed: 02/12/17 21:08> Family/Social History - Physician Review Nursing Documentation Reviewed: Yes Family/Social History: No Known Family HX Smoking Status: Never Smoked Hx Alcohol Use: Yes (40 oz. of beer daily) Hx Substance Use: No <Ed Osorio P - Last Filed: 02/12/17 21:08> Allergies/Home Meds <Tapan Cordero - Last Filed: 02/12/17 14:33> <Ed Osorio - Last Filed: 02/12/17 21:08> Allergies/Adverse Reactions: Allergies latex Allergy (Verified 02/12/17 13:50) ITCHING shellfish derived Allergy (Verified 02/12/17 13:50) SHORTNESS OF BREATH Review of Systems - Review of Systems Constitutional: Normal. absent: Fatigue, Weight Change Eyes: Normal ENT: Normal Respiratory: Normal Cardiovascular: Normal Gastrointestinal: Normal Genitourinary Female: Normal Musculoskeletal: Normal, Other (chronic numbness left 5th finger, and left toe) Skin: Normal Neurological: Normal Endocrine: Normal Hemo/Lymphatic: Normal Psychiatric: Normal <Osorio,Nahim P - Last Filed: 02/12/17 21:08> Physical Exam Temperature: Afebrile Blood Pressure: Normal Pulse: Regular Respiratory Rate: Normal Appearance: Positive for: Well-Appearing, Non-Toxic, Comfortable Pain Distress: None Mental Status: Positive for: Alert and Oriented X 3 - Systems Exam Head: Present: Atraumatic, Normocephalic Pupils: Present: PERRL Extroacular Muscles: Present: EOMI Conjunctiva: Present: Normal Ears: Present: Normal, NORMAL TM, Normal Canal. No: Erythema, TM Bulging, Fluid , TM Perf Mouth: Present: Moist Mucous Membranes Pharnyx: Present: Normal. No: ERYTHEMA, EXUDATE, TONSILS ENLARGED Neck: Present: Normal Range of Motion Respiratory/Chest: Present: Clear to Auscultation, Good Air Exchange. No: Respiratory Distress, Accessory Muscle Use Cardiovascular: Present: Regular Rate and Rhythm, Normal S1, S2. No: Murmurs Abdomen: Present: Normal Bowel Sounds. No: Tenderness, Distention, Peritoneal Signs Back: Present: Normal Inspection. No: CVA Tenderness Upper Extremity: Present: Normal Inspection, Normal ROM, NORMAL PULSES, Neurovascularly Intact, Capillary Refill < 2s, Norm 2-Pt Discrimination. No: Cyanosis, Edema, Tenderness, Swelling Lower Extremity: Present: Normal Inspection, NORMAL PULSES, Normal ROM, Neurovascularly Intact, Capillary Refill < 2 s. No: Edema, CALF TENDERNESS, Cyanosis, Temperature Abnormalties Neurological: Present: GCS=15, CN II-XII Intact, Speech Normal, Motor Func Grossly Intact, Normal Sensory Function, Normal Cerebellar Funct, Norm Deep Tendon Reflexes, Gait Normal, Memory Normal Skin: Present: Warm, Dry, Normal Color. No: Rashes Psychiatric: Present: Alert, Oriented x 3, Normal Insight, Normal Concentration <Osorio,Nahim P - Last Filed: 02/12/17 21:08> Vital Signs Temp Pulse Resp BP Pulse Ox 02/12/17 15:13 16 98 02/12/17 14:51 78 16 144/76 99 02/12/17 13:44 98.2 F 80 16 141/84 99 Medical Decision Making <Tapan Cordero - Last Filed: 02/12/17 14:33> Re-evaluation Time: 14:53 Reassessment Condition: Re-examined, Improved <Ed Osorio - Last Filed: 02/12/17 21:08> ED Course and Treatment: 02/12/17 14:51 I spoke with Clinic to set an appointment for patient. I was able to get an appointment for patient for February 20 at 9 am. I called [facility] department. She came to see patient and to help patient to complete [facility] care application. Dr. Cordero came to examine patient and he agrees with plan for disposition.. ( Ed Osorio) NIHSS Scale ([place]) Time Performed: 14:20 - How Severe is the [place]oke Baseline Level of Consciousness: 0=Alert LOC to Questions: 0=Both comments correct LOC to commands: 0=Obeys both correctly Best Gaze: 0=Normal Visual: 0=No visual loss Facial: 0=Normal Motor Arm - Left: 0=No drift Motor Arm - Right: 0=No drift Motor Leg - Left: 0=No drift Motor Leg - Right: 0=No drift Limb Ataxia: 0=Absent Sensory: 0=Normal Best Language: 0=No aphasia Dysarthia: 0=Normal articulation Extinction & Inattention (Neglect): 0=Normal, no object Score: 0 Risk Level: No Stroke Risk <Ed Osorio - Last Filed: 02/12/17 21:08> - PA / FACULTY NEUROPSYCHOLOGIST / Resident Statement MD/DO has examined the patient and agrees with the treatment plan. <Tapan Cordero - Last Filed: 02/12/17 14:33> Disposition/Present on Arrival <Tapan Cordero - Last Filed: 02/12/17 14:33> - Present on Arrival Any Indicators Present on Arrival: No History of DVT/PE: No History of Uncontrolled Diabetes: No Urinary Catheter: No History of Decub. Ulcer: No History Surgical Site Infection Following: None - Disposition Have Diagnosis and Disposition been Completed?: Yes Disposition Time: 14:54 Patient Plan: Discharge <Ed Osorio - Last Filed: 02/12/17 21:08> - Disposition Diagnosis: Paresthesia, Medication refill Disposition: HOME/ ROUTINE Condition: GOOD Discharge Instructions (ExitCare): Paresthesia (ED) Additional Instructions: You have an appointment for clinic On February 20 at 9am. Do not miss appointment. You need to complte [facility] application ANGELO. Take medication as instructed. Prescriptions: amLODIPine [Norvasc] 10 mg PO DAILY #10 tab Atorvastatin [Lipitor] 40 mg PO DAILY #10 tab hydroCHLOROthiazide [Hydrodiuril] 25 mg PO DAILY #10 tab Referrals: [facility] [place] [Outside] - Follow up with primary [facility] [Outside] - Follow up with primary Sourav García MD [Staff Provider] - Follow up with primary Forms: WORK NOTE
[2017-02-12 14:52] VITALS: BP 144/76; PULSE 78
[2017-02-12 15:13] VITALS: O2SAT 98
== END 2017-02-12 15:36 | disposition home or self-care (01) ==
LOC: ED 13:40
DX: Z76.0 Encounter for issue of repeat prescription (principal); R20.9 Unspecified disturbances of skin sensation; I10 Essential (primary) hypertension